=== PATIENT | female | born 1995 | race Caucasian/White ===

== ENCOUNTER 2020-05-17 23:42 | Emergency (ER) | payer BC ==
--- NOTE | 2020-05-18 00:16 | ERPHSYRPT ---
- History of Present Illness Time Seen by Provider: 05/18/20 00:05 Historian: patient Exam Limitations: no limitations Physician History: This is a 24-year-old white female who is not on any medications and is originally from [place] who presents with intermittent fever, intermittent chest pain, intermittent shortness of breath since Sunday prior to this evaluation. Patient underwent a laparoscopy and hysteroscopy on April 30, 2020 in [place] for a misplaced IUD. She then traveled on May 14 from [place] to [facility] because her has a long-term job he is doing here. Patient denies nausea vomiting and diarrhea. Patient denies s ignificant abdominal pain. Patient denies urinary tract infection symptoms. Patient has no known clotting or bleeding disorders. Patient denies vaginal bleeding. States that she feels weak and drained of energy. Patient has significant nausea Timing/Duration: day(s) (3), intermittent, worse Activities at Onset: none Quality: other (No significant abdominal pain) Abdominal Pain Onset Location: other (No significant abdominal pain) Severity of Pain-Max: none Severity of Pain-Current: none Associated Symptoms: chest pain, fever/chills, fatigue, nausea, shortness of breath, vomiting, weakness Previous symptoms: no prior history Allergies/Adverse Reactions: No Known Drug Allergies Allergy (Unverified 05/18/20 01:46) Travel Risk - International Travel Have you traveled outside of the country in past 3 weeks: No - Coronavirus Screening Are you exhibiting any of the following symptoms?: No Close contact with a COVID-19 positive Pt in past 14-21 Days: No - Review of Systems Constitutional: Fever, Weakness Eyes: No Symptoms Ears, Nose, & Throat: No Symptoms Respiratory: Dyspnea (None now) Cardiac: Chest Pain (None now) Abdominal/Gastrointestinal: Nausea, No Abdominal Pain, No Vomiting, No Diarrhea Genitourinary Symptoms: No Symptoms Musculoskeletal: No Symptoms Skin: No Symptoms Neurological: No Symptoms Psychological: No Symptoms Endocrine: No Symptoms Hematologic/Lymphatic: No Symptoms Immunological/Allergic: No Symptoms All Other Systems: Reviewed and Negative - Past Medical History Pertinent Past Medical History: No Neurological History: No Pertinent History ENT History: No Pertinent History Cardiac History: No Pertinent History Respiratory History: No Pertinent History Endocrine Medical History: No Pertinent History Musculoskeletal History: No Pertinent History GI Medical History: No Pertinent History History: No Pertinent History Psycho-Social History: No Pertinent History Female Reproductive Disorders: No Pertinent History - Past Surgical History Past Surgical History: Yes Neuro Surgical History: No Pertinent History Cardiac: No Pertinent History Respiratory: No Pertinent History Gastrointestinal: Exploratory Laparoscopy Genitourinary: No Pertinent History Musculoskeletal: No Pertinent History Female Surgical History: Other (Hysteroscopy) - Nursing Vital Signs Nursing Vital Signs: Initial Vital Signs Temperature 100.3 F 05/17/20 23:44 Pulse Rate 114 H 05/17/20 23:44 Respiratory Rate 20 05/17/20 23:44 Blood Pressure 135/96 05/17/20 23:44 O2 Sat by Pulse Oximetry 99 05/17/20 23:44 - Physical Exam General Appearance: no apparent distress, alert, anxiety Eye Exam: PERRL/EOMI, eyes nml inspection Ears, Nose, Throat Exam: normal ENT inspection, moist mucous membranes Neck Exam: normal inspection, non-tender, supple, full range of motion Respiratory Exam: normal breath sounds, lungs clear, airway intact, No chest tenderness, No respiratory distress Cardiovascular Exam: regular rate/rhythm, normal heart sounds, normal peripheral pulses Gastrointestinal/Abdomen Exam: soft, normal bowel sounds, No tenderness Pelvic Exam: not done Rectal Exam: not done Back Exam: normal inspection, normal range of motion, No CVA tenderness Extremity Exam: normal inspection, normal range of motion, pelvis stable (Well) Neurologic Exam: alert, oriented x 3, cooperative, 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 Skin Exam: normal color, warm, dry Lymphatic Exam: No adenopathy SpO2 Interpretation: normal O2 Delivery: Room Air - Course Nursing assessment & vital signs reviewed: Yes EKG Interpreted by Me: RATE ([id number]), Sinus Tach, NORMAL AXIS, NORMAL INTERVALS, NORMAL QRS, Right Bundle Branch Block Ordered Tests: Active Orders 24 hr Category Date Time Status EKG-ER Only STAT Care 05/18/20 00:18 Active IV Insertion STAT Care 05/18/20 00:18 Active ABDOMEN AND PELVIS W/0 CONTRAS [CT] Stat Exams 05/18/20 00:19 Taken CHEST WITH CONTRAST [CT] Stat Exams 05/18/20 01:04 Taken AMYLASE Stat Lab 05/18/20 00:39 Completed BLOOD CULTURE Stat Lab 05/18/20 00:35 Received CBC W DIFF Stat Lab 05/18/20 00:39 Completed CMP Stat Lab 05/18/20 00:39 Completed CULTURE,URINE Stat Lab 05/18/20 00:39 Received D-DIMER QUANTITATIVE Stat Lab 05/18/20 00:39 Completed HCG,QUALITATIVE URINE Stat Lab 05/18/20 00:39 Completed LIPASE Stat Lab 05/18/20 00:39 Completed Lactic Acid Stat Lab 05/18/20 00:35 Completed Manual Differential NC Stat Lab 05/18/20 00:39 Completed TROPONIN Q3H Lab 05/18/20 00:39 Completed TROPONIN Q3H Lab 05/18/20 03:30 Ordered TROPONIN Q3H Lab 05/18/20 06:30 Ordered TROPONIN Q3H Lab 05/18/20 09:30 Ordered TROPONIN Q3H Lab 05/18/20 12:30 Ordered UA W/RFX UR CULTURE Stat Lab 05/18/20 00:39 Completed Medication Summary Discontinued Medications Generic Name Dose Route Start Last Admin Trade Name Freq PRN Reason Stop Dose Admin Sodium Chloride 1,000 mls @ 999 mls/hr 05/18/20 00:18 05/18/20 00:25 Sodium Chloride 0.9% 1000 Ml IV 05/18/20 01:18 999 mls/hr .Q1H1M STA Administration Sodium Chloride Confirm 05/18/20 00:21 Sodium Chloride 0.9% 1000 Ml Administered 05/18/20 00:22 Dose 1,000 mls @ ud .ROUTE .STK-MED ONE Ceftriaxone Sodium/Dextrose 1 g in 50 mls @ 100 mls/hr 05/18/20 01:43 05/18/20 02:03 Rocephin 1 Gm-D5w 50 Ml Bag IV 05/18/20 02:12 100 mls/hr STAT STA 100 mls/hr Administration Ceftriaxone Sodium/Dextrose Confirm 05/18/20 01:48 Rocephin 1 Gm-D5w 50 Ml Bag Administered 05/18/20 01:49 Dose 1 g in 50 mls @ ud IV .STK-MED ONE Ondansetron HCl 4 mg 05/18/20 00:18 05/18/20 00:25 Zofran 4 Mg/2 Ml Vial IV 05/18/20 00:19 4 mg STAT ONE Administration Ondansetron HCl Confirm 05/18/20 00:20 Zofran 4 Mg/2 Ml Vial Administered 05/18/20 00:21 Dose 4 mg .ROUTE .STK-MED ONE Lab/Rad Data: Laboratory Result Diagrams 05/18/20 00:39 05/18/20 00:39 Laboratory Results 05/18/20 05/18/20 05/18/20 Range/Units 00:39 00:39 00:39 WBC (4.0-10.5) K/mm3 RBC (4.1-5.4) M/mm3 Hgb (12.0-16.0) gm/dl Hct (35-47) % MCV (78-100) fl MCH (26-32) pg MCHC (32-36) g/dl RDW (11.5-14.0) % Plt Count (150-450) K/mm3 MPV (7.5-11.0) fl Segmented Neutrophils (36.0-66.0) % Band Neutrophils (0.0-2.0) % Lymphocytes (Manual) (24-44) % Monocytes (Manual) (0.0-12.0) % Platelet Estimate (NORMAL) RBC Morphology D-Dimer (215-500) ng/mL Sodium (137-145) mmol/L Potassium (3.5-5.1) mmol/L Chloride (98-107) mmol/L Carbon Dioxide (22-30) mmol/L Anion Gap (5-15) MEQ/L BUN (7-17) mg/dL Creatinine (0.52-1.04) mg/dL Estimated GFR ML/MIN Glucose (74-106) mg/dL Lactic Acid (0.4-2.0) Calcium (8.4-10.2) mg/dL Total Bilirubin (0.2-1.3) mg/dL AST (14-36) U/L ALT (0-35) U/L Alkaline Phosphatase (38-126) U/L Troponin I < 0.012 (0.000-0.034) ng/mL Serum Total Protein (6.3-8.2) g/dL Albumin (3.5-5.0) g/dL Amylase (30-110) U/L Lipase (23-300) U/L Urine Color YELLOW (YELLOW) Urine Appearance CLEAR (CLEAR) Urine pH 8.0 (5-6) Ur Specific [place] 1.006 (1.005-1.025) Urine Protein NEGATIVE (Negative) Urine Ketones NEGATIVE (NEGATIVE) Urine Blood SMALL (0-5) Tristan/ul Urine Nitrite NEGATIVE (NEGATIVE) Urine Bilirubin NEGATIVE (NEGATIVE) Urine Urobilinogen NEGATIVE (0-1) mg/dL Ur Leukocyte Esterase LARGE (NEGATIVE) Urine WBC (Auto) 51-100 (0-5) /HPF Urine RBC (Auto) 0-2 (0-2) /HPF U Epithel Cells (Auto) FEW (FEW) /HPF Urine Bacteria (Auto) RARE (NEGATIVE) /HPF Urine Culture Reflexed YES (NO) Urine Glucose NEGATIVE (NEGATIVE) mg/dL Urine HCG, Qual NEGATIVE (Negative) 05/18/20 05/18/20 05/18/20 Range/Units 00:39 00:39 00:39 WBC 7.5 (4.0-10.5) K/mm3 RBC 4.44 (4.1-5.4) M/mm3 Hgb 12.9 (12.0-16.0) gm/dl Hct 39.6 (35-47) % MCV 89.2 (78-100) fl MCH 29.1 (26-32) pg MCHC 32.6 (32-36) g/dl RDW 13.2 (11.5-14.0) % Plt Count 161 (150-450) K/mm3 MPV 10.0 (7.5-11.0) fl Segmented Neutrophils 57 (36.0-66.0) % Band Neutrophils 1 (0.0-2.0) % Lymphocytes (Manual) 32 (24-44) % Monocytes (Manual) 10 (0.0-12.0) % Platelet Estimate NORMAL (NORMAL) RBC Morphology NORMAL D-Dimer 1508 H* (215-500) ng/mL Sodium 139 (137-145) mmol/L Potassium 3.8 (3.5-5.1) mmol/L Chloride 103 (98-107) mmol/L Carbon Dioxide 28 (22-30) mmol/L Anion Gap 11.6 (5-15) MEQ/L BUN 7 (7-17) mg/dL Creatinine 0.77 (0.52-1.04) mg/dL Estimated GFR > 60.0 ML/MIN Glucose 88 (74-106) mg/dL Lactic Acid (0.4-2.0) Calcium 8.9 (8.4-10.2) mg/dL Total Bilirubin 0.50 (0.2-1.3) mg/dL AST 61 H (14-36) U/L ALT 110 H (0-35) U/L Alkaline Phosphatase 107 (38-126) U/L Troponin I (0.000-0.034) ng/mL Serum Total Protein 7.4 (6.3-8.2) g/dL Albumin 4.2 (3.5-5.0) g/dL Amylase 46 (30-110) U/L Lipase 66 (23-300) U/L Urine Color (YELLOW) Urine Appearance (CLEAR) Urine pH (5-6) Ur Specific [place] (1.005-1.025) Urine Protein (Negative) Urine Ketones (NEGATIVE) Urine Blood (0-5) Tristan/ul Urine Nitrite (NEGATIVE) Urine Bilirubin (NEGATIVE) Urine Urobilinogen (0-1) mg/dL Ur Leukocyte Esterase (NEGATIVE) Urine WBC (Auto) (0-5) /HPF Urine RBC (Auto) (0-2) /HPF U Epithel Cells (Auto) (FEW) /HPF Urine Bacteria (Auto) (NEGATIVE) /HPF Urine Culture Reflexed (NO) Urine Glucose (NEGATIVE) mg/dL Urine HCG, Qual (Negative) 05/18/20 Range/Units 00:35 WBC (4.0-10.5) K/mm3 RBC (4.1-5.4) M/mm3 Hgb (12.0-16.0) gm/dl Hct (35-47) % MCV (78-100) fl MCH (26-32) pg MCHC (32-36) g/dl RDW (11.5-14.0) % Plt Count (150-450) K/mm3 MPV (7.5-11.0) fl Segmented Neutrophils (36.0-66.0) % Band Neutrophils (0.0-2.0) % Lymphocytes (Manual) (24-44) % Monocytes (Manual) (0.0-12.0) % Platelet Estimate (NORMAL) RBC Morphology D-Dimer (215-500) ng/mL Sodium (137-145) mmol/L Potassium (3.5-5.1) mmol/L Chloride (98-107) mmol/L Carbon Dioxide (22-30) mmol/L Anion Gap (5-15) MEQ/L BUN (7-17) mg/dL Creatinine (0.52-1.04) mg/dL Estimated GFR ML/MIN Glucose (74-106) mg/dL Lactic Acid 1.0 (0.4-2.0) Calcium (8.4-10.2) mg/dL Total Bilirubin (0.2-1.3) mg/dL AST (14-36) U/L ALT (0-35) U/L Alkaline Phosphatase (38-126) U/L Troponin I (0.000-0.034) ng/mL Serum Total Protein (6.3-8.2) g/dL Albumin (3.5-5.0) g/dL Amylase (30-110) U/L Lipase (23-300) U/L Urine Color (YELLOW) Urine Appearance (CLEAR) Urine pH (5-6) Ur Specific [place] (1.005-1.025) Urine Protein (Negative) Urine Ketones (NEGATIVE) Urine Blood (0-5) Tristan/ul Urine Nitrite (NEGATIVE) Urine Bilirubin (NEGATIVE) Urine Urobilinogen (0-1) mg/dL Ur Leukocyte Esterase (NEGATIVE) Urine WBC (Auto) (0-5) /HPF Urine RBC (Auto) (0-2) /HPF U Epithel Cells (Auto) (FEW) /HPF Urine Bacteria (Auto) (NEGATIVE) /HPF Urine Culture Reflexed (NO) Urine Glucose (NEGATIVE) mg/dL Urine HCG, Qual (Negative) - Progress Progress: improved Progress Note: 05/18/20 02:13 CAT scan of the abdomen and pelvis shows no acute intra-abdominal process CAT scan of the chest with intravenous contrast reveals no pulmonary emboli no pneumonia no other acute intrathoracic process. Counseled pt/family regarding: lab results, diagnosis, need for follow-up, rad results - Departure Departure Disposition: Home Clinical Impression: Urinary tract infection Condition: Stable Critical Care Time: No Additional Instructions: Drink plenty of fluids. Take Tylenol and ibuprofen as needed for pain and fever. Take your medications as prescribed. Follow-up with your primary care physician for further management. Prescriptions: Promethazine HCl 25 mg [Phenergan 25 mg] 25 mg PO Q8H PRN PRN #10 tablet PRN Reason: Nausea/Vomiting Ciprofloxacin [Cipro 500 MG] 500 mg PO BID #14 tablet
[2020-05-18] MEDS ORDERED: Zofran 4 MG/2 ML VIAL IV ONE (00:18)
[2020-05-18] MEDS ORDERED: Sodium Chloride 0.9% 1000 ML 1,000 ML IV STA (00:18)
[2020-05-18] MEDS ORDERED: Zofran 4 MG/2 ML VIAL ONE (00:20)
[2020-05-18] MEDS ORDERED: Sodium Chloride 0.9% 1000 ML 1,000 ML ONE (00:21)
[2020-05-18 00:43] LABS: Hematocrit 39.6 % (35-47); Hemoglobin 12.9 gm/dl (12.0-16.0); Mean Cell Volume 89.2 fl (78-100); Mean Corpuscular Hemoglobin 29.1 pg (26-32); Mean Corpuscular Hgb Concent. 32.6 g/dl (32-36); Platelet Count 161 K/mm3 (150-450); Red Blood Count 4.44 M/mm3 (4.1-5.4); Red Cell Distribution Width 13.2 % (11.5-14.0); White Blood Count 7.5 K/mm3 (4.0-10.5)
[2020-05-18 00:49] LABS: ALBUMIN 4.2 g/dL (3.5-5.0); ALKALINE PHOSPHATASE 107 U/L (38-126); AMYLASE 46 U/L (30-110); ANION GAP 11.6 MEQ/L (5-15); BLOOD UREA NITROGEN 7 mg/dL (7-17); CHLORIDE 103 mmol/L (98-107); Calcium 8.9 mg/dL (8.4-10.2); Carbon Dioxide 28 mmol/L (22-30); Creatinine 1 0.77 mg/dL (0.52-1.04); Glucose 88 mg/dL (74-106); LIPASE 66 U/L (23-300); Potassium 3.8 mmol/L (3.5-5.1); SGOT/AST 61 U/L (14-36); SGPT/ALT 110 U/L (0-35); SODIUM 139 mmol/L (137-145); Total Protein 7.4 g/dL (6.3-8.2)
[2020-05-18 01:00] LABS: Appearance CLEAR (CLEAR); Bacteria RARE /HPF (NEGATIVE); Bilirubin NEGATIVE (NEGATIVE); Blood SMALL Ery/ul (0-5); Epithelial Cells FEW /HPF (FEW); Glucose NEGATIVE (NEGATIVE); Ketones NEGATIVE (NEGATIVE); Leukocyte Esterase LARGE (NEGATIVE); Nitrite NEGATIVE (NEGATIVE); Protein,Urine Dip NEGATIVE (Negative); RBC 0-2 /HPF (0-2); Specific Gravity 1.006 (1.005-1.025); Urobilinogen NEGATIVE mg/dL (0-1); WBC 51-100 /HPF (0-5)
[2020-05-18 01:23] LABS: BAND 1 % (0.0-2.0); Lymphocytes 32 % (24-44); Monocyte 10 % (0.0-12.0); Neutrophils 57 % (36.0-66.0); Total Cells Counted 100
[2020-05-18 01:24] LABS: Platelet Estimate NORMAL (NORMAL)
[2020-05-18] MEDS ORDERED: ROCEPHIN 1 Gm-D5w 50 ml Bag** 1 G/50 ML IVPB IV STA (01:43)
[2020-05-18] MEDS ORDERED: ROCEPHIN 1 Gm-D5w 50 ml Bag** 1 G/50 ML IVPB IV ONE (01:48)
[2020-05-18 02:33] VITALS: BP 107/71; PULSE 89; O2SAT 98
--- NOTE | 2020-05-18 08:55 | XRAY ---
Indication: Intermittent fever. Elevated d-dimer. Status post laparoscopic hysteroscopy. Multiple contiguous axial images obtained through the chest using 80 cc Isovue 370 contrast and PE protocol. Comparison: None There is satisfactory opacification of the pulmonary arteries to include the lobar and segmental branches. No filling defect or pulmonary embolus. Heart is not enlarged. Aorta is normal in course and caliber. No pathologic mediastinal/hilar lymphadenopathy. Lungs are inflated and clear. Bony thorax intact. CT abdomen/pelvis reported separately. Impression: Negative pulmonary embolus. No acute cardiopulmonary abnormalities. Comment: Preliminary interpretation was made by [facility]. No critical discrepancy.
--- NOTE | 2020-05-18 09:00 | XRAY ---
Indication: Nausea and emesis. Status post laparoscopic hysteroscopy. Multiple contiguous axial images obtained through the abdomen and pelvis without contrast as ordered. Comparison: None CT chest reported separately. Noncontrasted stomach and bowel loops appear nonobstructed. Normal appendix. Mild diffuse fecal debris greatest in the ascending and transverse colon. Small cul-de-sac free fluid probably physiologic. 2.7 x 3.7 cm right adnexa cystic mass probably ovary in etiology. No free air. Borderline hepatomegaly measuring 20 cm and borderline splenomegaly measuring 12.7 cm. Remaining liver, gallbladder, pancreas, spleen, adrenal glands, kidneys, ureters, bladder, uterus, and aorta appear unremarkable for noncontrast exam. Osseous structures intact. No ventral or inguinal hernias. Impression: 1. 2.7 x 3.7 cm right adnexa cystic mass probably ovary. Small cul-de-sac fluid presumed ruptured/leaking cyst. Pelvic sonogram may yield further information. 2. Mild fecal stasis and hepatosplenomegaly. 3. Remaining CT abdomen/pelvis without contrast exam is negative. Comment: Preliminary interpretation was made by [facility]. No critical discrepancy.
== END 2020-05-18 02:46 | disposition home or self-care (01) ==
LOC: ED 23:42
DX: N39.0 Urinary tract infection, site not specified (principal)
CPT/HCPCS: 36000; 36415; 71260; 74176; 80053; 81001; 82150; 83605; 83690; 84484; 84703; 85025; 85379; 87040; 87086; 93005; 96360; 96365; 96374; 99284; J0696; J2405